=== PATIENT | female | born 1960 | race Caucasian/White ===

== ENCOUNTER 2018-01-14 07:06 | Emergency (ER) | payer OTHER ==
[2018-01-14 07:39] VITALS: BP 101/72; PULSE 88; RESP 18; TEMP 98.8; O2SAT 100
--- NOTE | 2018-01-14 07:49 | C.PDOC ---
History Of Present Illness 57 Y/O FEMALE PRESENTS TO ED WITH C/O EXACERBATION OF CHRONIC RHEUMATOID ARTHRITIS PAIN. PATIENT STATES SHE RECEIVES MONTHLY INJECTION "MACAINE" BUT OFFICE CANCELLED APPT AND NOT RESCHEDULED UNTIL 02/2018. PATIENT C/O "EVERYTHING HURTS". DENIES OTHER SX EXAM MILD DIST NONTOXIC NEG Time Seen by Provider: 01/14/18 07:40 Chief Complaint (Nursing): Pain, Chronic History Per: Patient History/Exam Limitations: no limitations Onset/Duration Of Symptoms: Days Current Symptoms Are (Timing): Still Present Past Medical History Reviewed: Historical Data, Nursing Documentation, Vital Signs Vital Signs: Last Vital Signs Temp 98.8 F 01/14/18 07:08 Pulse 88 01/14/18 07:08 Resp 18 01/14/18 07:08 BP 101/72 01/14/18 07:08 Pulse Ox 100 01/14/18 07:08 - Medical History PMH: Arthritis, Osteoporosis, Rheumatoid Arthritis Surgical History: Appendectomy Family History: States: No Known Family Hx - Social History Hx Alcohol Use: No Hx Substance Use: No - Immunization History Hx Tetanus Toxoid Vaccination: Yes Hx Influenza Vaccination: No Hx Pneumococcal Vaccination: No Review Of Systems Constitutional: Negative for: Fever, Chills Cardiovascular: Negative for: Chest Pain Respiratory: Negative for: Cough Musculoskeletal: Positive for: Other (Body pain) Skin: Negative for: Rash Neurological: Negative for: Weakness, Numbness Physical Exam - Physical Exam Appears: Non-toxic, Other (In mild distress) Skin: Warm, Dry, No Rash Head: Atraumatic, Normacephalic Eye(s): bilateral: Normal Inspection Oral Mucosa: Moist Neck: Normal ROM, Supple Cardiovascular: Rhythm Regular Respiratory: Normal Breath Sounds, No Rales, No Rhonchi, No Wheezing Back: No CVA Tenderness Extremity: Normal ROM, Capillary Refill (<2 seconds), No Deformity Neurological/Psych: Oriented x3, Normal Speech, Normal Cognition ED Course And Treatment O2 Sat by Pulse Oximetry: 100 (RA) Pulse Ox Interpretation: Normal Progress - Re-Evaluation Re-evaluation Note: 01/14/18 07:55 D/W DR CHAMBERLAIN: CONFIRMS PT RECEIVES MONTHLY INTRAART INJ OF MARCAINE BUT PT DOES NOT HAVE RA. STATES PT MISSED HER APPT. ADVISES OFFICE FU. 01/14/18 08:00 PT ADVISED FU OFFICE. NOW STATES TAKES GABAPENTIN AND ETODOLAC 400 BUT RAN OUT OF ETODOLAC. AGREES W PLAN - Data Reviewed Data Reviewed: Old records Disposition Counseled Patient/Family Regarding: Diagnosis, Need For Followup - Disposition Referrals: Noé Chamberlain MD [Staff Provider] - Disposition: HOME/ ROUTINE Disposition Time: 08:01 Condition: GOOD Prescriptions: Etodolac [Lodine] 400 mg PO TID #21 tablet Instructions: Chronic Pain (DC) Forms: [employer] (French) Print Language: KAZAKH - Clinical Impression Clinical Impression: Chronic pain, Medication refill - Scribe Statement The provider has reviewed the documentation as recorded by the Christopheribirving Smith All medical record entries made by the Christopheribe were at my direction and personally dictated by me. I have reviewed the chart and agree that the record accurately reflects my personal performance of the history, physical exam, medical decision making, and the department course for this patient. I have also personally directed, reviewed, and agree with the discharge instructions and disposition.
== END 2018-01-14 08:05 | disposition home or self-care (01) ==
LOC: C.ER 07:06
DX: Z76.0 Encounter for issue of repeat prescription (principal); G89.29 Other chronic pain